=== PATIENT | male | born 1970 | race Caucasian/White ===

== ENCOUNTER 2017-05-22 10:59 | Emergency (ER) | payer SELFPAY ==
[~2017-05-22] VITALS: Ht 177.8 cm; Wt 56.2 kg
[2017-05-22] MEDS ORDERED: MORPHINE SULFATE 4 MG/ML, 1ML IVPush PRN (12:00)
[2017-05-22] MEDS ORDERED: SODIUM CHLORIDE FLUSH 10ML SYR IVF ONE (12:00)
[2017-05-22] MEDS ORDERED: DIPHENHYDRAMINE 50 MG/ML, 1ML IVPush ONE (12:00)
[2017-05-22] MEDS ORDERED: METOCLOPRAMIDE 5 MG/ML, 2ML IVPush ONE (12:00)
[2017-05-22] MEDS ORDERED: SODIUM CHLORIDE 0.9% 1,000ML IVBOLUS ONE (12:00)
[2017-05-22] MEDS ORDERED: DIPHENHYDRAMINE 50 MG/ML, 1ML ONE (12:16)
[2017-05-22] MEDS ORDERED: MORPHINE SULFATE 4 MG/ML, 1ML ONE (12:16)
[2017-05-22] MEDS ORDERED: METOCLOPRAMIDE 5 MG/ML, 2ML ONE (12:16)
[2017-05-22 12:36] LABS: ASPARTATE AMINO TRANSFERASE 13 U/L (15-37); BLOOD UREA NITROGEN 17 mg/dL (7-18)
[2017-05-22] MEDS ORDERED: PROMETHAZINE 25 MG/ML, 1ML ONE (13:09)
[2017-05-22 13:17] VITALS: BP 154/86
[2017-05-22] MEDS ORDERED: PROMETHAZINE 25 MG/ML, 1ML IM ONE (13:30)
== END 2017-05-22 14:45 | disposition home or self-care (01) ==
LOC: ED 12:56
DX: R11.2 Nausea with vomiting, unspecified (principal)
CPT/HCPCS: 36415; 80053; 83690; 85025; 96361; 96372; 96374; 96375; 99284; J1200; J2550; J2765; J7030

== ENCOUNTER 2019-12-16 07:25 | Emergency (ER) | payer SELFPAY ==
[~2019-12-16] VITALS: Ht 177.8 cm; Wt 53.7 kg
--- NOTE | 2019-12-16 07:41 | NUR ---
PT HERE TODAY FOR NAUSEA THAT HAS BEEN GOING ON FOR YEARS. LAST TIME HE THREW UP WAS 2200 LAST NIGHT. STATES IT HAPPENS ANYTIME HE DRINKS WATER OR EATS FOOD. HAS POOR APPETITE. STATES LAYING IN A TUB HELPS AND HE IS CONSTANTLY LAYING IN ONE. PT RESTING ON GURNEY. CONNECTED TO MONITOR. VSS. SOLIS. [employer] STUDENT AT BEDSIDE ASSESSING PT NOW.
--- NOTE | 2019-12-16 07:45 | NUR ---
PT STATES THIS GETS RELIEVED WHEN HE HAS A BM. DESCRIBES HIMSELF CONSTIPATED RIGHT NOW.
[2019-12-16] MEDS ORDERED: ZIPRASIDONE 20 MG INJ IM ONE ×2 (08:16→08:30)
[2019-12-16] MEDS ORDERED: ONDANSETRON 2MG/ML, 2ML ONE (08:16)
[2019-12-16] MEDS ORDERED: FAMOTIDINE 20 MG/2 ML ONE (08:16)
[2019-12-16] MEDS ORDERED: FAMOTIDINE 20 MG/2 ML IV ONE (08:30)
[2019-12-16] MEDS ORDERED: ONDANSETRON 2MG/ML, 2ML IVPush ONE (08:30)
[2019-12-16] MEDS ORDERED: SODIUM CHLORIDE FLUSH 10ML SYR IVF ONE (08:30)
[2019-12-16] MEDS ORDERED: SODIUM CHLORIDE 0.9% 1,000ML IVBOLUS ONE (08:30)
--- NOTE | 2019-12-16 08:35 | NUR ---
PIV STARTED. BLOOD COLLECTED. PT MEDICATED PER EMAR. RESTING ON GURNEY. IN PAIN. MD AT BEDSIDE ASSESSING PT NOW.
--- NOTE | 2019-12-16 08:38 | NUR ---
PT REFUSED MARQUIS. AND PA AWARE.
[2019-12-16 08:56] LABS: MEAN CORPUSCULAR HEMOGLOBIN 31.6 pg (27.5-34.5); MEAN CORPUSCULAR HGB CONC 32.8 g/dL (33.2-36.2); MEAN CORPUSCULAR VOLUME 96.4 fL (81-97); MEAN PLATELET VOLUME 7.1 fL (7.4-10.4); PLATELET COUNT 311 x10^3/uL (130-400); RED BLOOD COUNT 5.75 x10^6/uL (4.38-5.82); RED CELL DISTRIBUTION WIDTH 13.9 % (9.4-14.8)
[2019-12-16 09:00] LABS: ALBUMIN 5.5 g/dL (3.4-5.0); ANION GAP 5 mmol/L (5-15); CALCIUM 10.1 mg/dL (8.5-10.1); CHLORIDE 112 mmol/L (98-107)
[2019-12-16] MEDS ORDERED: PROMETHAZINE 25 MG/ML, 1ML IM ONE (09:00)
[2019-12-16 09:03] LABS: ALANINE AMINOTRANSFERASE 20 U/L (12-78); ALKALINE PHOSPHATASE 54 U/L (45-117); BILIRUBIN,TOTAL 0.8 mg/dL (0.2-1.0); CREATININE 1.43 mg/dL (0.7-1.3); TOTAL PROTEIN 9.4 g/dL (6.4-8.2)
[2019-12-16 09:20] LABS: BASOPHILS # (AUTO) 0.06 x10^3/uL (0-0.1); BASOPHILS % (AUTO) 0 % (0-1); EOSINOPHILS % (AUTO) 0 % (1-7); LYMPHOCYTES # (AUTO) 1.32 x10^3/uL (1-3.4); LYMPHOCYTES % (AUTO) 9 % (22-44); MD SCAN; MONOCYTES % (AUTO) 6 % (2-9); NEUTROPHILS # (AUTO) 12.56 x10^3/uL (1.8-6.8); NEUTROPHILS % (AUTO) 85 % (42-75)
--- NOTE | 2019-12-16 09:20 | NUR ---
PT RESTING ON [email or web address]. STATES NAUSEA IS RESOLVING. NADN. CONNECTED TO MONITOR. VSS. PROVIDED WITH A WARM BLANKET.
--- NOTE | 2019-12-16 10:17 | NUR ---
PT RESTING ON GURNEY. NADN. RODRÍGUEZ.
--- NOTE | 2019-12-16 10:27 | NUR ---
PT UP FOR RECHECK AT THIS TIME.
[2019-12-16] MEDS ORDERED: DIPHENHYDRAMINE 50 MG/ML, 1ML IVPush ONE (10:30)
[2019-12-16] MEDS ORDERED: METOCLOPRAMIDE 5 MG/ML, 2ML IVPush ONE (10:30)
[2019-12-16] MEDS ORDERED: METOCLOPRAMIDE 5 MG/ML, 2ML ONE (10:36)
[2019-12-16] MEDS ORDERED: DIPHENHYDRAMINE 50 MG/ML, 1ML ONE (10:36)
--- NOTE | 2019-12-16 10:41 | NUR ---
PT MEDICATED PER EMAR. RESTING ON GURNEY. VSS. AWARE OF POC. PT IS WORKING ON FINISHING HIS SECOND CUP OF ICE CHIPS. NO EMESIS DURING STAY IN ER UP TO THIS POINT. PT DENIES FURTHER NEEDS.
[2019-12-16 11:29] VITALS: BP 158/80
--- NOTE | 2019-12-16 11:29 | NUR ---
PT STATES HE IS FEELING BETTER. RESTING ON GURNEY. NADN. RODRÍGUEZ.
--- NOTE | 2019-12-16 11:33 | NUR ---
PT PROVIDED WITH MORE ICE CHIPS, REQUESTING TO SEE . PT PUT UP FOR RECHECK.
--- NOTE | 2019-12-16 12:16 | NUR ---
PIV REMOVED. PT AWARE OF DC PLAN. GETTING DRESSED NOW.
== END 2019-12-16 12:30 | disposition home or self-care (01) ==
LOC: ED 09:09
DX: R10.13 Epigastric pain (principal); R11.2 Nausea with vomiting, unspecified; F12.20 Cannabis dependence, uncomplicated; F17.210 Nicotine dependence, cigarettes, uncomplicated
CPT/HCPCS: 36415; 74021; 74177; 80053; 83690; 85025; 93005; 96361; 96372; 96374; 96375; 99284; J1200; J2765; J3486; J3490; J7030

== ENCOUNTER 2020-06-04 08:51 | Emergency (ER) | payer OTHER ==
[~2020-06-04] VITALS: Ht 177.8 cm; Wt 55.1 kg
[2020-06-04] MEDS ORDERED: ONDANSETRON ODT 4 MG PO ONE (09:30)
[2020-06-04] MEDS ORDERED: FAMOTIDINE 20 MG TABLET PO ONE (09:30)
--- NOTE | 2020-06-04 09:34 | NUR ---
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
[2020-06-04 09:40] LABS: BASOPHILS # (AUTO) 0.07 x10^3/uL (0-0.1); BASOPHILS % (AUTO) 0 % (0-1); EOSINOPHILS % (AUTO) 0 % (1-7); LYMPHOCYTES # (AUTO) 1.48 x10^3/uL (1-3.4); LYMPHOCYTES % (AUTO) 10 % (22-44); MD NO; MEAN CORPUSCULAR HEMOGLOBIN 31.3 pg (27.5-34.5); MEAN CORPUSCULAR HGB CONC 32.7 g/dL (33.2-36.2); MEAN CORPUSCULAR VOLUME 95.7 fL (81-97); MEAN PLATELET VOLUME 6.5 fL (7.4-10.4); MONOCYTES # (AUTO) 0.33 x10^3/uL (0.2-0.8); MONOCYTES % (AUTO) 2 % (2-9); NEUTROPHILS # (AUTO) 13.52 x10^3/uL (1.8-6.8); NEUTROPHILS % (AUTO) 88 % (42-75); PLATELET COUNT 353 x10^3/uL (130-400); RED BLOOD COUNT 5.27 x10^6/uL (4.38-5.82); RED CELL DISTRIBUTION WIDTH 13.7 % (9.4-14.8)
[2020-06-04] MEDS ORDERED: DIAZEPAM 5 MG TABLET ONE (09:49)
[2020-06-04] MEDS ORDERED: ONDANSETRON ODT 4 MG ONE (09:50)
[2020-06-04] MEDS ORDERED: FAMOTIDINE 20 MG TABLET ONE (09:51)
[2020-06-04 09:56] LABS: ALBUMIN 5.1 g/dL (3.4-5.0)
--- NOTE | 2020-06-04 09:59 | NUR ---
PT MEDICATED PER JAN, ADMIN PO VALIUM PER MD VERBAL ORDER
[2020-06-04] MEDS ORDERED: DIAZEPAM 5 MG TABLET PO ONE (10:00)
[2020-06-04 10:24] LABS: ALANINE AMINOTRANSFERASE 28 U/L (12-78); ALKALINE PHOSPHATASE 55 U/L (45-117); ANION GAP 7 mmol/L (5-15); BILIRUBIN,TOTAL 0.6 mg/dL (0.2-1.0); CALCIUM 9.7 mg/dL (8.5-10.1); CHLORIDE 111 mmol/L (98-107); CREATININE 1.35 mg/dL (0.7-1.3); TOTAL PROTEIN 8.9 g/dL (6.4-8.2)
[2020-06-04 10:27] VITALS: BP 114/91
[2020-06-04 11:04] LABS: MICROSCOPIC INDICATED
--- NOTE | 2020-06-04 11:04 | NUR ---
UA COLLECTED AND SENT TO LAB, VSS. PT STATES "I JUST FEEL A BIT SLEEPY, FEEL BETTER THO" NAD NOTED AT THIS TIME
== END 2020-06-04 11:41 | disposition home or self-care (01) ==
LOC: ED 09:21
DX: R11.2 Nausea with vomiting, unspecified (principal); R10.9 Unspecified abdominal pain; F17.200 Nicotine dependence, unspecified, uncomplicated
CPT/HCPCS: 36415; 80053; 81001; 85025; 99284; Q0162

== ENCOUNTER 2020-06-10 06:35 | Observation (INO) | payer OTHER ==
[~2020-06-10] VITALS: Ht 177.8 cm; Wt 58.2 kg
--- NOTE | 2020-06-10 07:32 | NUR ---
PT WITH C/O N/V STATES THIS HAS BEEN GOING ON FOR ABOUT FOUR YEARS, HE HAS HAD MULTIPLE ER VISITS AND TOLD TO F/[facility] GI BUT NEVER HAD INSURRANCE SO WAS UNABLE TO. PT WAS SEEN HERE TUESDAY FOR SAME, GIVEN MARQUIS AND NILAM, STATES IT HAS NOT BEEN WORKING
[2020-06-10] MEDS ORDERED: PROMETHAZINE 25 MG/ML, 1ML ONE ×2 (08:18→14:51)
[2020-06-10 08:27] LABS: ANION GAP 5 mmol/L (5-15); CALCIUM 8.9 mg/dL (8.5-10.1); CHLORIDE 101 mmol/L (98-107)
[2020-06-10 08:31] LABS: ALANINE AMINOTRANSFERASE 18 U/L (12-78); ALKALINE PHOSPHATASE 44 U/L (45-117); BILIRUBIN,TOTAL 0.7 mg/dL (0.2-1.0); TOTAL PROTEIN 6.7 g/dL (6.4-8.2)
[2020-06-10 08:37] LABS: BASOPHILS # (AUTO) 0.03 x10^3/uL (0-0.1); BASOPHILS % (AUTO) 0 % (0-1); EOSINOPHILS # (AUTO) 0.03 x10^3/uL (0-0.4); EOSINOPHILS % (AUTO) 0 % (1-7); HEMOGRAM NOTE RECHECKED; LYMPHOCYTES # (AUTO) 1.54 x10^3/uL (1-3.4); LYMPHOCYTES % (AUTO) 15 % (22-44); MD NO; MEAN CORPUSCULAR HEMOGLOBIN 31.5 pg (27.5-34.5); MEAN CORPUSCULAR HGB CONC 32.8 g/dL (33.2-36.2); MEAN CORPUSCULAR VOLUME 95.9 fL (81-97); MEAN PLATELET VOLUME 6.4 fL (7.4-10.4); MONOCYTES # (AUTO) 0.45 x10^3/uL (0.2-0.8); MONOCYTES % (AUTO) 4 % (2-9); NEUTROPHILS # (AUTO) 8.19 x10^3/uL (1.8-6.8); NEUTROPHILS % (AUTO) 80 % (42-75); PLATELET COUNT 307 x10^3/uL (130-400); RED BLOOD COUNT 4.85 x10^6/uL (4.38-5.82)
--- NOTE | 2020-06-10 08:47 | NUR ---
PIV INITIATED, PT MEDICATED PER MAR. VSS, NAD NOTED
[2020-06-10] MEDS ORDERED: SODIUM CHLORIDE FLUSH 10ML SYR IVF ONE (09:00)
[2020-06-10] MEDS ORDERED: PROMETHAZINE 25 MG/ML, 1ML IM ONE (09:00)
[2020-06-10] MEDS ORDERED: SODIUM CHLORIDE 0.9% 1,000ML IVBOLUS ONE (09:00)
[2020-06-10] MEDS ORDERED: POTASSIUM CHLORIDE 20 MEQ TAB.ER.PRT ONE (09:56)
[2020-06-10] MEDS ORDERED: POTASSIUM CHLORIDE 20 MEQ TAB.ER.PRT PO ONE (10:00)
--- NOTE | 2020-06-10 10:10 | NUR ---
ATTEMPTING TO MEDICATE PT WITH PO POTASSIUM PER JAN, PT UNABLE TO D/T N/V ERMD AWARE. PT WAS GIVEN WATER BY MED STUDENT PT NOW VOMITTING IN , GIVEN NEW EMESIS BAG AND BLANKETS THEY WERE SOILED, ERMD UPDATED, PT TO NOW BE ADMITTED
[2020-06-10] MEDS ORDERED: ONDANSETRON 2MG/ML, 2ML IVPush PRN (12:00)
[2020-06-10] MEDS ORDERED: KETOROLAC 30 MG/1 ML IV PRN (12:00)
[2020-06-10] MEDS ORDERED: hydrALAzine 20 MG/ML, 1ML IVPush PRN (12:00)
[2020-06-10] MEDS ORDERED: ENALAPRILAT 1.25 MG/ML, 2ML IVPush PRN (12:00)
[2020-06-10] MEDS ORDERED: ONDANSETRON ODT 4 MG PO PRN (12:00)
[2020-06-10] MEDS ORDERED: ACETAMINOPHEN 325 MG TABLET PO PRN (12:00)
[2020-06-10] MEDS ORDERED: POLYETHYLENE GLYCOL 17 GM PACKET PO PRN (12:00)
[2020-06-10] MEDS ORDERED: PROMETHAZINE 25 MG/ML, 1ML IM PRN (12:00)
[2020-06-10] MEDS ORDERED: BISACODYL 10 MG SUPP PR SCH (12:00)
[2020-06-10] MEDS ORDERED: ENOXAPARIN 40 MG/0.4 ML ONE (14:51)
[2020-06-10] MEDS ORDERED: KETOROLAC 30 MG/1 ML ONE (14:51)
[2020-06-10] MEDS ORDERED: NICOTINE 14MG/24 HR PATCH.TD24 ONE (14:51)
[2020-06-10] MEDS: NS + 20MEQ KCL 1,000 ML IV SCH (14:56)
[2020-06-10] MEDS: NICOTINE 14MG/24 HR PATCH.TD24 TD SCH (15:00)
[2020-06-10] MEDS: ENOXAPARIN 40 MG/0.4 ML SQ SCH (15:01)
[2020-06-10] MEDS ORDERED: tylen (15:11)
[2020-06-10 15:20] VITALS: BP 105/68
[2020-06-10] MEDS ORDERED: BISACODYL 10 MG SUPP ONE (16:09)
[2020-06-10 21:00] VITALS: BP 113/66
[2020-06-10] MEDS: FAMOTIDINE 20 MG/2 ML IVPush SCH (22:23)
[2020-06-11] MEDS: NS + 20MEQ KCL 1,000 ML IV SCH ×3 (00:32→15:15)
[2020-06-11 01:39] VITALS: BP 133/84
[2020-06-11 05:33] LABS: CREATININE 0.95 mg/dL (0.7-1.3)
[2020-06-11 05:44] LABS: ANION GAP 5 mmol/L (5-15); CHLORIDE 109 mmol/L (98-107)
[2020-06-11 07:56] VITALS: BP 122/84
[2020-06-11] MEDS: FAMOTIDINE 20 MG/2 ML IVPush SCH (09:44)
[2020-06-11] MEDS ORDERED: BISACODYL 10 MG SUPP PR PRN (10:00)
[2020-06-11] MEDS: ENOXAPARIN 40 MG/0.4 ML SQ SCH (14:56)
[2020-06-11] MEDS: NICOTINE 14MG/24 HR PATCH.TD24 TD SCH (14:56)
[2020-06-11 15:00] VITALS: BP_SYST 110; BP_SYST 75; BP_DIAS 75
== END 2020-06-11 14:12 | disposition home or self-care (01) ==
LOC: ED 07:11 → EDIP 10:44 → INTOOBSV 10:44 → 3N 13:35
PROVIDERS: ADMIT Family Medicine; ATTEND Family Medicine
DX: R11.2 Nausea with vomiting, unspecified (principal); I10 Essential (primary) hypertension; E87.1 Hypo-osmolality and hyponatremia; E87.6 Hypokalemia; Z79.899 Other long term (current) drug therapy
CPT/HCPCS: 36415; 80048; 80053; 83735; 84100; 85025; 96361; 96365; 96366; 96372; 96375; 96376; 99284; G0378; J1650; J1885; J2405; J2550; J3480; J3490; J7030